=== PATIENT | female | born 1935 | race Caucasian/White ===

== ENCOUNTER 2018-01-27 16:29 | Inpatient (IN) | payer OTHER, MEDICARE ==
[~2018-01-27] VITALS: Ht 167.6 cm; Wt 65.8 kg
[2018-01-27 17:26] LABS: ABSOLUTE BASOPHIL COUNT 0 /CUMM (0.0-0.2); ABSOLUTE EOSINOPHIL COUNT 0.2 /CUMM (0.0-0.7); ABSOLUTE GRANULOCYTE CT 3.5 /CUMM (1.4-6.5); ABSOLUTE LYMPH COUNT 1.6 /CUMM (1.2-3.4); ABSOLUTE MONOCYTE COUNT 0.6 /CUMM (0.10-0.60); BASOPHIL % 0.4 % (0.0-2.0); EOSINOPHIL % 3.2 % (0-5); GRANULOCYTE % 59.2 % (42.2-75.2); HEMATOCRIT 35.6 % (37-47); MEAN CORPUSCULAR HGB 31.5 PG (27.0-31.0); MEAN CORPUSCULAR HGB CONC 33.9 G/DL (33.0-37.0); MEAN CORPUSCULAR VOLUME 92.8 FL (81.0-99.0); MEAN PLATELET VOLUME 6.5 FL (7.4-10.4); PLATELET COUNT 277 /CUMM (130-400); RED BLOOD CELL CT 3.84 /CUMM (4.20-5.40); WHITE BLOOD CELL COUNT 5.9 /CUMM (4.8-10.8)
[2018-01-27 17:31] LABS: PT 11.7 SEC (9.4-12.5); PTT 30 SEC (25-37)
--- NOTE | 2018-01-27 18:24 | RADIOLOGY REPORT ---
PA/LATERAL CHEST RADIOGRAPH CLINICAL INFORMATION: Preop clearance COMPARISON: None available TECHNIQUE: 2 views of the chest were obtained. FINDINGS: There is symmetric lung inflation. There is no focal consolidation, pleural effusion, or pneumothorax. Cardiac silhouette size is normal. There are no acute osseous findings. There are surgical clips within the left axilla. IMPRESSION: No acute pulmonary process.
--- NOTE | 2018-01-27 19:25 | Cons- Orthopedic ---
General Information and HPI Consulting Request Date of Consult: 01/27/18 Requested By: error History of Present Illness: ERROR. Allergies/Medications Allergies: Coded Allergies: MDX - Penicillin (Intermediate, HIVES 01/27/18) hydrochlorothiazide (Intermediate, HIVES 01/27/18) Past History Medical History Neurological: NONE EENT: NONE Cardiovascular: hypertension Respiratory: NONE Gastrointestinal: NONE Hepatic: NONE Renal: NONE Musculoskeletal: NONE Psychiatric: NONE Endocrine: NONE Cancer(s): BREAST CA Exam & Diagnostic Data Vital Signs and I&O error Physical Exam: errror Assessment/Plan Assessment/Plan error Consult Acknowledgment - Thank you for your consult request. Physical Exam: gen- card- pulm- abd- ext- Assessment/Plan Assessment/Plan A- 82yoF Consult Acknowledgment - Thank you for your consult request.
--- NOTE | 2018-01-27 19:33 | Cons- Orthopedic ---
General Information and HPI Consulting Request Date of Consult: 01/27/18 Requested By: ED, medical service Reason for Consult: right hip fx History of Present Illness: 82F presents to ED after being seen as an outpt by Dr. Ryo and found with a right femoral neck fracture that occured during a mechanical fall 4 weeks ago. Pt was shopping at [employer], slipped on the ?wet floor and fell. She continued walking and didnt seek medical tx for 2 weeks. At that time, he main complaint was right knee pain and had imaging of R knee only which was normal. Her R knee pain continued for an additional 2 weeks, and she saw Dr. Roy for the first time this week. Her R hip was imaged for the first time, and right femoral neck fracture was seen on MRI. She admits to pain at right knee and hip (knee>hip), though is otherwise comfortable. No hx orthopedic surgery. PMHx htn. Denies cp/sob/n/v/other injuries at this time. Allergies/Medications Allergies: Coded Allergies: hydrochlorothiazide (Intermediate, HIVES 01/27/18) Penicillins (HIVES 01/27/18) Home Med List: Aspirin (Ecotrin*) 325 MG TABLET.DR 1 TAB PO BID PAIN (Reported) Clonidine HCl 0.1 MG TABLET 1 TAB PO BID BP (Reported) Ibuprofen 600 MG TABLET 0.5 TAB PO PRN PAIN/INFLAMMATION (Reported) with food Losartan Potassium 100 MG TABLET 1 TAB PO DAILY BP (Reported) Metoprolol Tartrate (Lopressor) 50 MG TABLET 1 TAB PO BID HEART/BP (Reported) Past History Medical History Neurological: NONE EENT: NONE Cardiovascular: hypertension Respiratory: NONE Gastrointestinal: NONE Hepatic: NONE Renal: NONE Musculoskeletal: NONE Psychiatric: NONE Endocrine: NONE Cancer(s): breast cancer (left, sp CT/RT/lumpectomy 2007) Surgical History Pertinent Surgical History: appendectomy (8yr old), lumpectomy (2007, left, sp CT/RT), hemorrhoidectomy 1974 Psychosocial History Where Do You Live? Home Who Do You Live With? spouse Services at Home: None Illicit Drug Use: denies illicit drug use Exam & Diagnostic Data Vital Signs and I&O Vital Signs Date Time Temp Pulse Resp B/P B/P Pulse O2 O2 Flow FiO2 Mean Ox Delivery Rate 01/27 1637 98.3 73 18 179/73 98 Room Air Physical Exam: gen- nad [id number] pulm-ctab abd- soft nt ext- +dorsi/plantar felcion, gross sensation intact, +pt/dp bl, calves soft nt, r hip nt/skin intact Last 24 Hours of Labs: Laboratory Tests 01/27 1714 Chemistry Sodium (137 - 145 mmol/L) 140 Potassium (3.5 - 5.1 mmol/L) 4.4 Chloride (98 - 107 mmol/L) 104 Carbon Dioxide (22 - 30 mmol/L) 27 Anion Gap (5 - 16) 9 BUN (7 - 17 mg/dL) 31 H Creatinine (0.5 - 1.0 mg/dL) 1.2 H Estimated GFR (>60 ml/min) 43 L BUN/Creatinine Ratio (7 - 25 %) 25.8 H Glucose (65 - 99 mg/dL) 87 Calcium (8.4 - 10.2 mg/dL) 9.6 Total Bilirubin (0.2 - 1.3 mg/dL) 0.2 AST (14 - 36 U/L) 21 ALT (9 - 52 U/L) 21 Alkaline Phosphatase (<127 U/L) 64 Troponin I (< 0.11 ng/ml) < 0.01 Total Protein (6.3 - 8.2 g/dL) 6.7 Albumin (3.5 - 5.0 g/dL) 4.0 Globulin (1.9 - 4.2 gm/dL) 2.7 Albumin/Globulin Ratio (1.1 - 2.2 %) 1.5 Coagulation PT (9.4 - 12.5 SEC) 11.7 INR (0.90 - 1.19) 1.07 APTT (25 - 37 SEC) 30 Hematology CBC w Diff NO MAN DIFF REQ WBC (4.8 - 10.8 /CUMM) 5.9 RBC (4.20 - 5.40 /CUMM) 3.84 L Hgb (12.0 - 16.0 G/DL) 12.1 Hct (37 - 47 %) 35.6 L MCV (81.0 - 99.0 FL) 92.8 MCH (27.0 - 31.0 PG) 31.5 H MCHC (33.0 - 37.0 G/DL) 33.9 RDW (11.5 - 14.5 %) 13.0 Plt Count (130 - 400 /CUMM) 277 MPV (7.4 - 10.4 FL) 6.5 L Gran % (42.2 - 75.2 %) 59.2 Lymphocytes % (20.5 - 51.1 %) 26.4 Monocytes % (1.7 - 9.3 %) 10.8 H Eosinophils % (0 - 5 %) 3.2 Basophils % (0.0 - 2.0 %) 0.4 Absolute Granulocytes (1.4 - 6.5 /CUMM) 3.5 Absolute Lymphocytes (1.2 - 3.4 /CUMM) 1.6 Absolute Monocytes (0.10 - 0.60 /CUMM) 0.6 Absolute Eosinophils (0.0 - 0.7 /CUMM) 0.2 Absolute Basophils (0.0 - 0.2 /CUMM) 0 Imaging Results: done as outpt, reviewed by Dr. Roy Assessment/Plan Assessment/Plan A- 82yoF with R femoral neck fracture, PMHx HTN, with some elvated creatinine ( chronic?), otherwise stable P- -agree with medical admission for preoperative optimization/clearance - no additional imaging neccessary of rle -NPO p mn - prn pain meds - home meds - OR in am if cleared - dw Dr. Dang Consult Acknowledgment - Thank you for your consult request.
--- NOTE | 2018-01-27 19:33 | ED UPPER/LOWER EXTREMITY COMPL ---
History of Present Illness General Chief Complaint: General Adult Stated Complaint: PT SIB DR RANDALL FOR OPERATION Source: patient Exam Limitations: no limitations Vital Signs & Intake/Output Vital Signs & Intake/Output Vital Signs Date Time Temp Pulse Resp B/P B/P Pulse O2 O2 Flow FiO2 Mean Ox Delivery Rate 01/28 0130 97.9 68 20 148/60 01/28 0130 97.9 68 20 148/60 01/27 2200 98.0 60 18 140/62 91 Room Air 01/27 2010 98.4 56 18 178/68 98 Room Air 01/27 1637 98.3 73 18 179/73 98 Room Air ED Intake and Output 01/28 0000 01/27 1200 Intake Total 440 Output Total Balance 440 Intake, Oral 440 Patient 145 lb Weight Weight Reported by Patient Measurement Method Triage Note: "I'M HERE BECAUSE A HAVE A LITTLE FRACTURED HIP" AND STATES DR RANDALL WANTS HER TO GET ADMITTED FOR SURGERY TOMORROW OR TUESDAY. AMBULATORY WITH MINIMAL ISSUE. STATES THE PAIN IS WORSE IN HER KNEE THAN HER HIP. REPORTS SHE HAD A MECHANICAL TRIP AND FALL 4 WEEKS AGO AND SUSTAINED HIP INJURY. Triage Nurses Notes Reviewed? yes Onset: Abrupt Duration: day(s):, week(s): Timing: recent history HPI: 82-year-old female comes into the emergency room for right hip fracture. Patient had an MRI as an outpatient which showed a right femoral neck fracture. She was sent in for further evaluation. Patient will require surgery in the morning. Mild pain. Intermittent. Present with certain movements. ([place] LUTHER,Mathew) Allergies Coded Allergies: hydrochlorothiazide (Intermediate, HIVES 01/27/18) Penicillins (HIVES 01/27/18) Reconcile Medications Aspirin (Ecotrin*) 325 MG TABLET.DR 1 TAB PO BID PAIN (Reported) Clonidine HCl 0.1 MG TABLET 1 TAB PO BID BP (Reported) Ibuprofen 600 MG TABLET 0.5 TAB PO PRN PAIN/INFLAMMATION (Reported) with food Losartan Potassium 100 MG TABLET 1 TAB PO DAILY BP (Reported) Metoprolol Tartrate (Lopressor) 50 MG TABLET 1 TAB PO BID HEART/BP (Reported) (Angie HUGHES,Dada Hart) Past History Travel History Traveled to [place] past 21 day No Medical History Any Pertinent Medical History? see below for history Neurological: NONE EENT: NONE Cardiovascular: hypertension Respiratory: NONE Gastrointestinal: NONE Hepatic: NONE Renal: NONE Musculoskeletal: NONE Psychiatric: NONE Endocrine: NONE Cancer(s): BREAST CA Surgical History Surgical History: non-contributory Psychosocial History Who do you live with Significant Other What is your primary language [place]an Tobacco Use: Quit >30 days ago Family History Hx Contributory? No (Mathew Sullivan) Review of Systems Review of Systems Constitutional: Reports: no symptoms. EENTM: Reports: no symptoms. Respiratory: Reports: no symptoms. Cardiovascular: Reports: no symptoms. Gastrointestinal/Abdominal: Reports: no symptoms. Genitourinary: Reports: no symptoms. Musculoskeletal: Reports: see HPI. Skin: Reports: no symptoms. Neurological/Psychological: Reports: no symptoms. Hematologic/Endocrine: Reports: no symptoms. Immunological: Reports: no symptoms. All Other Systems: Reviewed and Negative (Mathew Sullivan) Physical Exam Physical Exam General Appearance: well developed/nourished, mild distress Head: atraumatic Eyes: Bilateral: normal appearance. Ears, Nose, Throat: normal ENT inspection, hearing grossly normal Neck: normal inspection Cardiovascular/Respiratory: no respiratory distress Back: normal inspection Hip Right: limited range of motion Neurologic/Tendon: normal sensation, normal motor functions, normal tendon functions, responds to pain, no evidence tendon injury, no pulse deficit Skin: intact, normal color, warm/dry (Mathew Sullivan) Progress Differential Diagnosis: contusion, dislocation, fracture Plan of Care: Orders Procedure Date/time Status Nothing by Mouth 01/28 B Active XRY-HIP 2-3 VIEWS, RIGHT 01/28 0228 Active Weight 01/27 2149 Active Vital Signs 01/27 2149 Active Teach/Educate 01/27 2149 Active Pain Treatment and Response 01/27 2149 Active Nutritional Intake, Monitor 01/27 2149 Active Isolation 01/27 2149 Active Intake & Output 01/27 2149 Active Patient Care Conference 01/27 2149 Active Activity/Ambulation 01/27 2149 Active Pathway - chart 01/27 2058 Active House Staff 01/27 2058 Active Patient Data 01/27 2058 Active Code Status 01/27 2058 Active Patient Data 01/27 1955 Active Saline Lock 01/27 1951 Active Misc Message 01/27 1951 Active ED Holding Orders 01/27 1951 Active Admit to inpatient 01/27 1951 Active Vital Signs 01/27 1951 Active Code Status 01/27 1951 Complete TROPONIN LEVEL 01/27 1653 Complete PARTIAL THROMBOPLASTIN TIME 01/27 1653 Complete PROTHROMBIN TIME 01/27 1653 Complete COMPREHENSIVE METABOLIC PANEL 01/27 1653 Complete CBC WITHOUT DIFFERENTIAL 01/27 1653 Complete EKG 01/27 165 Active Intake & Output 01/27 1637 Active VTE Mechanical Prophylaxis 01/27 UNK Active Vital Signs 01/27 UNK Complete Intake & Output 01/27 UNK Complete Activity/Ambulation 01/27 UNK Active Current Medications Sig/Fernanda Start time Last Medication Dose Stop Time Status Admin Clonidine 0.1 MG BID 01/28 900 AC (Catapres) Losartan Potassium 100 MG DAILY 01/28 900 AC (Cozaar) Metoprolol Tartrate 50 MG BID 01/28 900 AC (Lopressor) Dextrose/Sodium 1,000 ML Q20H 01/28 0045 AC 01/28 Chloride 01/28 2044 0130 (D5W-1/2 Normal Saline 1000ML) Acetaminophen 650 MG Q6P PRN 01/27 2100 AC (Tylenol) Acetaminophen 1,000 MG Q6P PRN 01/27 2100 AC (Ofirmev) Laboratory Tests 01/27/18 1714: Anion Gap 9, Estimated GFR 43 L, BUN/Creatinine Ratio 25.8 H, Glucose 87, Calcium 9.6, Total Bilirubin 0.2, AST 21, ALT 21, Alkaline Phosphatase 64, Troponin I < 0.01, Total Protein 6.7, Albumin 4.0, Globulin 2.7, Albumin/ Globulin Ratio 1.5, PT 11.7, INR 1.07, APTT 30, CBC w Diff NO MAN DIFF REQ, RBC 3.84 L, MCV 92.8, MCH 31.5 H, MCHC 33.9, RDW 13.0, MPV 6.5 L, Gran % 59.2, Lymphocytes % 26.4, Monocytes % 10.8 H, Eosinophils % 3.2, Basophils % 0.4, Absolute Granulocytes 3.5, Absolute Lymphocytes 1.6, Absolute Monocytes 0.6, Absolute Eosinophils 0.2, Absolute Basophils 0 Diagnostic Imaging: Viewed by Me: Radiology Read. Discussed w/RAD: Radiology Read. Radiology Impression: PATIENT: KERVIN FAIRBANKS PRESENT AGE: 82 PATIENT ACCOUNT NO: [id number] : 37 LOCATION: [facility] ORDERING PHYSICIAN: Rama LUTHER SERVICE DATE: 01/27/18 EXAM TYPE: RAD - XRY-CHEST XRAY, TWO VIEWS PA/LATERAL CHEST RADIOGRAPH CLINICAL INFORMATION: Preop clearance COMPARISON: None available TECHNIQUE: 2 views of the chest were obtained. FINDINGS: There is symmetric lung inflation. There is no focal consolidation, pleural effusion, or pneumothorax. Cardiac silhouette size is normal. There are no acute osseous findings. There are surgical clips within the left axilla. IMPRESSION: No acute pulmonary process. DICTATED BY: Ion Yap MD DATE/TIME DICTATED:01/27/181817 CONVEYOR MAINTENANCE MECHANIC:DEBI DATE/TIME TRANSCRIBED:01/27/181817 CONFIDENTIAL, DO NOT COPY WITHOUT APPROPRIATE AUTHORIZATION. <Electronically signed in Other Vendor System> SIGNED BY: Ion Yap MD 01/27/181823 Initial ED EKG: normal sinus rhythm (57), rate (57) (Mathew Sullivan) Departure Departure Disposition: STILL A PATIENT Condition: Stable Clinical Impression Primary Impression: Closed displaced fracture of right femoral neck Referrals: John HUGHES,Brayden Quintana (PCP/Family) Departure Forms: Customer Survey General Discharge Information Admission Note Spoke With: Myke Roman MD Documentation of Exam: Documentation of any treatments & extenuating circumstances including Concerns Regarding Discharge (functional status, medication knowledge or non-compliance, living conditions, etc.) that warrant an admission rather than observation: Patient will require orif in morning. medical clearance. short term rehanb. pain control. (Mathew Sullivan) PA/SALES REPRESENTATIVE PRINTING PAPER Co-Sign Statement Statement: ED Attending supervision documentation- [x] I saw and evaluated the patient. I have also reviewed all the pertinent lab results and diagnostic results. I agree with the findings and the plan of care as documented in the PA's/SALES REPRESENTATIVE PRINTING PAPER's documentation. [] I have reviewed the ED Record and agree with the PA's/SALES REPRESENTATIVE PRINTING PAPER's documentation. [] Additions or exceptions (if any) to the PAs/SALES REPRESENTATIVE PRINTING PAPER's note and plan are summarized below: [] (Angie HUGHES,Dada Hart)
--- NOTE | 2018-01-27 19:56 | History & Physical ---
Emery Garcia [birth year]: Past History Travel History Traveled to [place] past 21 day No Medical History Neurological: NONE EENT: NONE Cardiovascular: hypertension Respiratory: NONE Gastrointestinal: NONE Hepatic: NONE Renal: NONE Musculoskeletal: NONE Psychiatric: NONE Endocrine: NONE Cancer(s): BREAST CA Surgical History Surgical History: non-contributory Review of Systems Review of Systems Cardiovascular: Denies: no symptoms. Respiratory: Denies: no symptoms. GI: Denies: no symptoms. Genitourinary: Denies: no symptoms. Neurological/Psychological: Denies: no symptoms. Exam & Diagnostic Data Physical Exam General Appearance Alert, Oriented X3, Cooperative, No Acute Distress Cardiovascular Normal S1, Normal S2 Lungs Clear to Auscultation, Normal Air Movement Abdomen Normal Bowel Sounds, Soft, No Tenderness, No Hepatospenomegaly, No Masses Neurological Normal Gait, Normal Speech, Strength at 5/5 X4 Ext, Normal Tone Extremities No Clubbing, No Cyanosis, No Edema, Normal Pulses, No Tenderness/ Swelling Assessment/Plan Assessment: 82 y of age F with PMH significant for HTN , Breast cancer 10 yrs ago s/p Chemo /RT in remission, Presented to ER with C/O hip fracture for repair. Patient endorsed Hx of fall 5 weeks ago, at that time she was only having pain in right knee joint. On visit to Ortho office they found out bruisie and reffered pain is due to right femur neck fracture. Ortho plaining for surgery on right hip and we will evaluate risk of patient for surgery. At the time presention to ER patient Vitals and labs are given below. Vitals: BP:179/70 OK: 73 RR:18 T:98, Spo2 98% Labs : Pertinent labs are significant for BUN/creatinine 31/1.2, PT/PTT 11/1.7, troponin less than 0.01. Chest x-ray unremarkable. Hip x-ray pending.ratification XRAY: right hip shows No acute abnormalities at the right hip. - Mild osteoarthritis of the right hip. MRI: MRI showed right femoral nect fracture Problems List: * Right femur neck fracture * HTN A/P: * Patient evaluated for surgery that * is she is fit candidaate for surgery or not. * RCRI score is 0.4% * Low risk for surgery. ON physical exam nothing sigificant. * Or consulation placed Dr Evens Roy MD * Surgery planned today History of hypertension: * Will continue her old medication losartan 100mg OD . metpoproplol 50mg BID , clonidine 0.1mg will be continued while his stay at hosptal. History of breast cancer In remission DVT prophylaxis ALPS for now CODE STATUS Full code Core Measures/Misc (01/30) Sepsis (View protocol) If YES complete Sepsis Event Note If YES complete Sepsis Event Note Bethany HUGHES,[facility] 01/28/18 0224: Core Measures/Misc (01/30) Sepsis (View protocol) If YES complete Sepsis Event Note If YES complete Sepsis Event Note Resident Review Statement Resident Statement: examined this patient, discussed with chemist internship, agreed with chemist internship, discussed with family, reviewed EMR data (avail), discussed with nursing , discussed with case mgmt, reviewed images, amended to note Other Findings: Patient is a 82 YO F with PMH significant for HTN follows , Breast cancer 10 yrs ago s/p Chemo/RT in remission, mild elevated Cr presented to [facility] after sustaining a hip fracture for repair. Patient sustained a fall 4.5 weeks ago, however reported only knee pain during her first Ortho visit ( referred pain) although had bruised on right hip. She later noticed her hip hurts a lot, had a follow-up appointment today. She was found to have a right hip fracture and sent to ER for surgery tomorrow. She was able to walk around very slight difficulty and participate in ADLs till today. She is admitted to medical service for preoperative optimization/risk stratification. Vital signs at presentation were stable except blood pressure 179/70 mmHg. Physical examination is unremarkable, she did have very mild difficulty mobilizing right hip. Labs are significant for BUN/creatinine 31/1.2, PT/PTT 11/1.7, troponin less than 0.01. Chest x-ray unremarkable. Hip x-ray pending. Evaluation Patient has RCRI score of 0 (low risk surgery, no history of ischemic heart disease, no history of CHF, no cerebral vascular disease, not diabetic, creatinine less than 2). Her risk for having adverse cardiac events is 0.4%. She is hematologically stable and physical examination is completely unremarkable. She is a very low risk for hip surgery. Plan Admit to general medicine floor Right hip fracture * Preoperative evaluation - risk stratified to be low * Nothing by mouth from midnight * Gentle IV hydration * Oral/IV Tylenol as needed * Orthopedic consultation - Ghanshyam Roy MD * Surgery planned in a.m. History of hypertension Appears resistant hypertension, follows Dr. Garcia. She was on losartan 100 mg daily, metoprolol 50 twice a day, clonidine 0.1 mg twice a day. * Continue home dose for now History of breast cancer In remission DVT prophylaxis ALPS for now CODE STATUS Full code Abel HUGHES,Myke 01/28/18 0413: General Information and HPI Statement: I have seen and personally examined KERVIN FAIRBANKS and documented this H&P. The patient is a 82 year old F who presented with a patient stated chief complaint of [hip fracture]. Source of Information: patient, family Exam Limitations: no limitations History of Present Illness: See below Allergies/Medications Allergies: Coded Allergies: hydrochlorothiazide (Intermediate, HIVES 01/27/18) Penicillins (HIVES 01/27/18) Home Med list Aspirin (Ecotrin*) 325 MG TABLET.DR 1 TAB PO BID PAIN (Reported) Clonidine HCl 0.1 MG TABLET 1 TAB PO BID BP (Reported) Ibuprofen 600 MG TABLET 0.5 TAB PO PRN PAIN/INFLAMMATION (Reported) with food Losartan Potassium 100 MG TABLET 1 TAB PO DAILY BP (Reported) Metoprolol Tartrate (Lopressor) 50 MG TABLET 1 TAB PO BID HEART/BP (Reported) Past History Medical History Cardiovascular: hypertension Review of Systems Review of Systems Constitutional: Reports: see HPI. Exam & Diagnostic Data Last 24 Hrs of Vital Signs/I&O Vital Signs Date Time Temp Pulse Resp B/P B/P Pulse O2 O2 Flow FiO2 Mean Ox Delivery Rate 01/28 013 97.9 68 20 148/60 01/28 0130 97.9 68 20 148/60 01/27 2200 98.0 60 18 140/62 91 Room Air 01/27 2010 98.4 56 18 178/68 98 Room Air 01/27 1637 98.3 73 18 179/73 98 Room Air Intake & Output 01/28 0800 01/28 0000 01/27 1600 Intake Total 440 Output Total Balance 440 Intake, Oral 440 Patient 145 lb Weight Weight Reported by Patient Measurement Method Physical Exam General Appearance Alert, Oriented X3, Cooperative, No Acute Distress Skin No Rashes, No Breakdown, No Significant Lesion Skin Temp/Moisture Exam: Warm/Dry Sepsis Skin Exam (color): Normal for Ethnicity HEENT Atraumatic, PERRLA, EOMI Neck Supple, No JVD Lymphatic Axillary nl, Cervical nl Cardiovascular Regular Rate, Normal S1, Normal S2 Lungs Clear to Auscultation, Normal Air Movement Abdomen Normal Bowel Sounds, Soft, No Tenderness Sepsis Peripheral Pulse Location: Dorsalis Pedis Sepsis Peripheral Pulse Exam: Normal Sepsis Cap Refill Exam: <2 Sec Last 24 Hrs of Labs/Kervin: Laboratory Tests 01/27/18 1714: Anion Gap 9, Estimated GFR 43 L, BUN/Creatinine Ratio 25.8 H, Glucose 87, Calcium 9.6, Total Bilirubin 0.2, AST 21, ALT 21, Alkaline Phosphatase 64, Troponin I < 0.01, Total Protein 6.7, Albumin 4.0, Globulin 2.7, Albumin/ Globulin Ratio 1.5, PT 11.7, INR 1.07, APTT 30, CBC w Diff NO MAN DIFF REQ, RBC 3.84 L, MCV 92.8, MCH 31.5 H, MCHC 33.9, RDW 13.0, MPV 6.5 L, Gran % 59.2, Lymphocytes % 26.4, Monocytes % 10.8 H, Eosinophils % 3.2, Basophils % 0.4, Absolute Granulocytes 3.5, Absolute Lymphocytes 1.6, Absolute Monocytes 0.6, Absolute Eosinophils 0.2, Absolute Basophils 0 Diagnostic Data EKG Results normal sinus rhythm (57) Assessment/Plan As Ranked By This Provider Problem List: 1. Closed displaced fracture of right femoral neck Core Measures/Misc (01/30) Acute Coronary Syndrome ACS Diagnosis: No Congestive Heart Failure Congestive Heart Failure Diagnosis No Cerebrovascular Accident CVA/TIA Diagnosis: No VTE (View Protocol) VTE Risk Factors No risk factors No Mechanical VTE Prophylaxis d/t LowRisk-No Interven Req'd No VTE Pharm Prophylaxis d/t LowRisk-No Interven Req'd Sepsis (View protocol) Sepsis Present: No If YES complete Sepsis Event Note If YES complete Sepsis Event Note Attending MD Review Statement Attending Statement Attending MD Statement: examined this patient, discuss w/resident/PA/DRIFTMAN, agreed w/resident/PA/DRIFTMAN, reviewed EMR data (avail), discussed with nursing, discussed with case mgmt, amended to note Attending Assessment/Plan: This patient is an 82 year old female with a significant past medical history for HTN follows, Breast cancer 10 yrs ago s/p Chemo/RT in remission, mild elevated Cr presented who presented to [facility] after sustaining a hip fracture for repair. The patient sustained a fall 4 1/2 weeks ago, however reported only knee pain during her first Ortho visit although had bruised on right hip. She later noticed her hip hurts a lot, had a follow-up appointment today. She was found to have a right hip fracture and sent to ER for pain management and optimization or possible surgery tomorrow. While in the emergency department the patient was afebrile with stable vital signs, CBC is unremarkable, INR normal, slight elevation in BUN and creatinine and chest x-ray without acute changes. The patient is admitted to general med for pain control and optimization. Her RCRI score is 0 (low risk surgery, no history of ischemic heart disease, no history of CHF, no cerebral vascular disease, not diabetic, creatinine less than 2). Her risk for having adverse cardiac events is 0.4%. She is a very low risk for hip surgery. Well monitor overnight, gently hydrate and keep her nothing by mouth after midnight. Full code
[2018-01-27] MEDS ORDERED: LOSARTAN POTAS100 M1 PO (21:16)
[2018-01-27] MEDS ORDERED: LOPRESSOR50 M1 PO (21:16)
[2018-01-27] MEDS ORDERED: CLONIDINE HCL0.1 MG PO (21:17)
[2018-01-27] MEDS ORDERED: IBUPROFEN600 M1 PO (21:18)
[2018-01-27] MEDS ORDERED: ASPIRIN EC325 M2 PO (21:18)
[2018-01-27 22:00] VITALS: BP 140/62
[2018-01-28 01:00] VITALS: BP 148/60
--- NOTE | 2018-01-28 02:35 | PN- Housestaff ---
Objective Last 24 Hrs of Vital Signs/I&O Vital Signs Date Time Temp Pulse Resp B/P B/P Pulse O2 O2 Flow FiO2 Mean Ox Delivery Rate 01/28 013 97.9 68 20 148/60 01/28 0130 97.9 68 20 14860 01/27 2200 98.0 60 18 140/62 91 Room Air 01/27 2010 98.4 56 18 178/68 98 Room Air 01/27 1637 98.3 73 18 179/73 98 Room Air Intake & Output 01/28 0800 01/28 0000 01/27 1600 Intake Total 440 Output Total Balance 440 Intake, Oral 440 Patient 65.771 kg Weight Weight Reported by Patient Measurement Method
[2018-01-28 06:31] VITALS: BP 140/60
--- NOTE | 2018-01-28 06:39 | PN- Housestaff ---
Emery Garcia 01/28/18 0638: Subjective Follow-up For: Hip fracture Subjective: Patient seen and examined at bedside. She is complaining of pain right hip and knee. She denies fever, chills, chest pain, abdominal pain, diarrhea, constipation, burning micturition, Review of Systems Constitutional: Reports: see HPI. Objective Last 24 Hrs of Vital Signs/I&O Vital Signs Date Time Temp Pulse Resp B/P B/P Pulse O2 O2 Flow FiO2 Mean Ox Delivery Rate 01/28 0631 98.0 60 22 140/60 96 Room Air 01/28 0130 97.9 68 20 148/60 01/28 0130 97.9 68 20 148/60 01/28 0100 97.9 68 20 148/60 97 Room Air 01/28 0000 91 Room Air 01/27 2200 98.0 60 18 140/62 91 Room Air 01/27 2010 98.4 56 18 178/68 98 Room Air 01/27 1637 98.3 73 18 179/73 98 Room Air Intake & Output 01/28 1600 01/28 0800 01/28 0000 Intake Total 277 440 Output Total 0 Balance 277 440 Intake, IV 227 Intake, Oral 50 440 Number 0 Bowel Movements Output, Urine 0 Patient 145 lb Weight Weight Reported by Patient Measurement Method Physical Exam General Appearance: Alert, Oriented X3, Cooperative, No Acute Distress Sepsis Skin Exam (color): Bruise on Right hip Cardiovascular: Normal S1, Normal S2 Lungs: Clear to Auscultation, Normal Air Movement Abdomen: Normal Bowel Sounds, Soft, No Tenderness, No Hepatospenomegaly, No Masses Assessment/Plan Assessment: 82 y of age F with PMH significant for HTN , Breast cancer 10 yrs ago s/p Chemo /RT in remission, Presented to ER with C/O hip fracture for repair. Patient endorsed Hx of fall 5 weeks ago, at that time she was only having pain in right knee joint. On visit to Ortho office they found out bruisie and reffered pain is due to right femur neck fracture. Ortho plaining for surgery on right hip and we will evaluate risk of patient for surgery. At the time presention to ER patient Vitals and labs are given below. Vitals: BP:179/70 VT: 73 RR:18 T:98, Spo2 98% Labs : Pertinent labs are significant for BUN/creatinine 31/1.2, PT/PTT 11/1.7, troponin less than 0.01. Chest x-ray unremarkable. Hip x-ray pending.ratification XRAY: right hip shows No acute abnormalities at the right hip. - Mild osteoarthritis of the right hip. MRI: MRI showed right femoral nect fracture Problems List: * Right femur neck fracture * HTN A/P: * Patient evaluated for surgery that * is she is fit candidaate for surgery or not. * RCRI score is 0.4% * Low risk for surgery. ON physical exam nothing sigificant. * Orho consulation placed Dr Evens Roy MD * Surgery planned today History of hypertension: * Will continue her old medication losartan 100mg OD . metpoproplol 50mg BID , clonidine 0.1mg will be continued while his stay at hosptal. History of breast cancer In remission DVT prophylaxis ALPS for now CODE STATUS Full code Problem List: 1. Closed displaced fracture of right femoral neck Pain Ratin Pain Location: Right femur head Pain Goal: Remain pain free Pain Plan: Pain management pathway Tomorrow's Labs & Rationales: CBC, BEP Pablo Graham 01/28/18 1207: Attending MD Review Statement Attending Statement Attending MD Statement: examined this patient, discuss w/resident/PA/FACING SLITTER, agreed w/resident/PA/FACING SLITTER, discussed with family, reviewed EMR data (avail), discussed with nursing, discussed with case mgmt, reviewed images, amended to note Attending Assessment/Plan: 82 year old female with a significant past medical history for HTN follows, Breast cancer 10 yrs ago s/p Chemo/RT in remission, mild elevated Cr presented who presented to [place] after sustaining a hip fracture for repair. Patient underwent surgery and continue alexandra-operative care. Pain control. Follow ortho recomemndations. Montitor abs including hct and electrolytes. DVT prophyalxis as per ortho.
--- NOTE | 2018-01-28 11:20 | Operative Report ---
Operative/Inv Procedure Report Surgery Date: 01/28/18 Name of Procedure: Right hip percutaneous pinning Pre-Operative Diagnosis: Right hip femoral neck fracture Post-Operative Diagnosis: Right hip femoral neck fracture Estimated Blood Loss: scant Surgeon/Project Accountant: Ghanshyam Roy M.D. Anesthesia: laryngeal mask airway Implants: [place] 6.5 mm partially threaded screws -85 mm, 80mm, 80 mm Complications: None Condition: Stable to PACU Operative Indication: This is an 82-year-old female who sustained a fall several weeks ago. She was seen by another physician however developed worsening pain. X-rays and MRI were consistent with a nondisplaced femoral neck fracture of the right hip. Risks and benefits of the procedure were discussed with the patient at length. Risks include but are not limited to nerve damage, muscle damage, infection, blood loss, blood clots, pulmonary embolus, and even . The patient agreed to the above risks and elected to proceed with surgery. Operative/Procedure Note Note: The patient was placed supine on the operating room table. Anesthesia was induced by the anesthesia team. The patient received IV antibiotics prior to incision. A timeout was performed prior to incision. The site marking was visualized prior to incision. The patient was positioned on the fracture table with the injured extremity in a well-padded traction boot. The contralateral lower extremity was placed in flexion and abduction in a well-padded leg moss. Traction was applied to the injured extremity and the hip was positioned under x-ray guidance. The lower extremitiy was prepped and draped in the normal sterile fashion. An incision was made over the lateral aspect of the greater trochanter. The fascia was incised. The vastus lateralis was reflected. 3 parallel guidewires were inserted in an inverted triangle fashion up into the femoral head. Care was taken not to go distal to the lesser trochanter as a starting position. The guidewires were measured. The outer cortex of the femur was drilled. Three partially-threaded screws were then inserted. X-rays were taken to ensure adequate positioning. The guidewires were removed. All wounds were copiously irrigated. The fascia was closed with #1 Vicryl suture in a simple interrupted fashion. The skin was closed with 2-0 Vicryl suture and dong. A dry sterile dressing was placed and patient was transferred to PACU in stable condition.
--- NOTE | 2018-01-28 13:14 | RADIOLOGY REPORT ---
EXAMINATION: XR HIP, RIGHT CLINICAL INFORMATION: Hip pain. Fracture. COMPARISON: None TECHNIQUE: Two views of the right hip. FINDINGS: The visualized right pelvic bones are intact. There is mild loss of superomedial joint space of the degenerated hip and osteophytes are present at the femoral head-neck junction. There is either coxa profunda or acetabular protrusio at the hip. The assessment is limited due to the oblique orientation of the AP view. No evidence of femoral fracture or osteonecrosis. IMPRESSION: - No acute abnormalities at the right hip. - Mild osteoarthritis of the right hip.
[2018-01-28 14:36] VITALS: BP 108/60
--- NOTE | 2018-01-28 14:48 | PN- Student ---
Charity Arnold 01/28/18 1434: Subjective Subjective: 82 yo female w/ pmhx of htn pod#1 s/p right hip femoral neck pinning 2/2 to femoral neck fx after fall. Pt seen at beside shortly after arrival from the PACU. Recovering well, has tingling at surgical site but denies post-op pain, and has no complaints. Pt has not yet ambulated or voided her bladder. Pt denies SOB, chest pain, nausea, dizziniess, fever, or chills. Objective Objective: 24 TOTALSVital Signs Date Time Temp Pulse Resp B/P B/P Pulse O2 O2 Flow FiO2 Mean Ox Delivery Rate 01/28 1436 97.0 61 20 108/60 97 Room Air 01/28 1358 160/70 01/28 1357 97.8 62 20 160/70 01/28 1041 98.0 60 22 140/60 01/28 0631 98.0 60 22 140/60 96 Room Air 01/28 0130 97.9 68 20 148/60 01/28 0130 97.9 68 20 148/60 01/28 0100 97.9 68 20 148/60 97 Room Air 01/28 0000 91 Room Air 01/27 2200 98.0 60 18 140/62 91 Room Air 01/27 2010 98.4 56 18 178/68 98 Room Air 01/27 1637 98.3 73 18 179/73 98 Room Air 01/28 0000 01/27 0000 Intake Total 440 Output Total Balance 440 Intake, Oral 440 Patient 145 lb Weight Weight Reported by Patient Measurement Method Laboratory Tests 01/27 1714 Chemistry Sodium (137 - 145 mmol/L) 140 Potassium (3.5 - 5.1 mmol/L) 4.4 Chloride (98 - 107 mmol/L) 104 Carbon Dioxide (22 - 30 mmol/L) 27 Anion Gap (5 - 16) 9 BUN (7 - 17 mg/dL) 31 H Creatinine (0.5 - 1.0 mg/dL) 1.2 H Estimated GFR (>60 ml/min) 43 L BUN/Creatinine Ratio (7 - 25 %) 25.8 H Glucose (65 - 99 mg/dL) 87 Calcium (8.4 - 10.2 mg/dL) 9.6 Total Bilirubin (0.2 - 1.3 mg/dL) 0.2 AST (14 - 36 U/L) 21 ALT (9 - 52 U/L) 21 Alkaline Phosphatase (<127 U/L) 64 Troponin I (< 0.11 ng/ml) < 0.01 Total Protein (6.3 - 8.2 g/dL) 6.7 Albumin (3.5 - 5.0 g/dL) 4.0 Globulin (1.9 - 4.2 gm/dL) 2.7 Albumin/Globulin Ratio (1.1 - 2.2 %) 1.5 Coagulation PT (9.4 - 12.5 SEC) 11.7 INR (0.90 - 1.19) 1.07 APTT (25 - 37 SEC) 30 Hematology CBC w Diff NO MAN DIFF REQ WBC (4.8 - 10.8 /CUMM) 5.9 RBC (4.20 - 5.40 /CUMM) 3.84 L Hgb (12.0 - 16.0 G/DL) 12.1 Hct (37 - 47 %) 35.6 L MCV (81.0 - 99.0 FL) 92.8 MCH (27.0 - 31.0 PG) 31.5 H MCHC (33.0 - 37.0 G/DL) 33.9 RDW (11.5 - 14.5 %) 13.0 Plt Count (130 - 400 /CUMM) 277 MPV (7.4 - 10.4 FL) 6.5 L Gran % (42.2 - 75.2 %) 59.2 Lymphocytes % (20.5 - 51.1 %) 26.4 Monocytes % (1.7 - 9.3 %) 10.8 H Eosinophils % (0 - 5 %) 3.2 Basophils % (0.0 - 2.0 %) 0.4 Absolute Granulocytes (1.4 - 6.5 /CUMM) 3.5 Absolute Lymphocytes (1.2 - 3.4 /CUMM) 1.6 Absolute Monocytes (0.10 - 0.60 /CUMM) 0.6 Absolute Eosinophils (0.0 - 0.7 /CUMM) 0.2 Absolute Basophils (0.0 - 0.2 /CUMM) 0 Physical exam: Gen: elderly female resting comfortably in bed, AOx4, NAD Cardio: RRR, S1 and S2, no m/r/g Resp: good air movement, mild wheezes in posterior lung field Abd: NDNT, hypoactive bs Ext: incision site on left, lat thigh clean, dry and intact. 5/5 motor and sensation grossly intact for LE, calves non-tender, no pitting edema, +2 DP pulses b/l Assessment/Plan Assessment: 82yo female w/ pmhx of HTN POD 0 s/p right femoral neck pinning 2/2 femoral neck fx due to fall recovering well from the without complaints. Plan: PT evaluation, WBAT Advance to regular diet as tolerated Cont IVF and abx ancef x 2 Encourage IS Change dressing pod 2 DVT ppx lovenox CaioEfren quintanilla 01/28/18 1625: Assessment/Plan Plan: Seen and evaluated. Agree with above. R hip dressing c/d/i, moves all extremities, compartment soft, motor/sensory intact, s/p R perc pinning for R femoral neck fracture, recovering well. Awaiting PT eval, WBAT. Ancef x2. DVT ppx - alps, lovenox tomorrow morning. F/u cbc and chem in morning. Dispo - home PT vs STR pending PT eval.
--- NOTE | 2018-01-28 15:58 | RADIOLOGY REPORT ---
EXAMINATION: XR ORTHOPEDIC EXTREMITY OR CLINICAL INFORMATION: Right hip pain. COMPARISON: Radiograph's of right hip, 01/28/2018. TECHNIQUE: Intraoperative fluoroscopic imaging of the right hip was utilized by Dr. Roy. NUMBER OF SAVED IMAGES: 34 FLUOROSCOPY TIME: 1 minute, 2 seconds. DOSE: 1.30 rad FINDINGS: Fluoroscopic imaging of the right hip was utilized by Dr. Roy during percutaneous screw fixation across the femoral neck. The last images show that the fixation screws are in satisfactory position. Please refer to the operative report. IMPRESSION: Fluoroscopic imaging equipment provided to the operating room for percutaneous screw fixation of the right femoral neck.
[2018-01-28 17:51] LABS: ABSOLUTE BASOPHIL COUNT 0.1 /CUMM (0.0-0.2); ABSOLUTE EOSINOPHIL COUNT 0.1 /CUMM (0.0-0.7); ABSOLUTE GRANULOCYTE CT 5.7 /CUMM (1.4-6.5); ABSOLUTE LYMPH COUNT 1.3 /CUMM (1.2-3.4); ABSOLUTE MONOCYTE COUNT 0.9 /CUMM (0.10-0.60); BASOPHIL % 0.7 % (0.0-2.0); EOSINOPHIL % 1.5 % (0-5); GRANULOCYTE % 70.8 % (42.2-75.2); HEMATOCRIT 32.6 % (37-47); MEAN CORPUSCULAR HGB 31.6 PG (27.0-31.0); MEAN CORPUSCULAR HGB CONC 33.7 G/DL (33.0-37.0); MEAN CORPUSCULAR VOLUME 93.6 FL (81.0-99.0); MEAN PLATELET VOLUME 7.2 FL (7.4-10.4); PLATELET COUNT 223 /CUMM (130-400); RBC DISTRIBUTION WIDTH 13.3 % (11.5-14.5); RED BLOOD CELL CT 3.48 /CUMM (4.20-5.40); WHITE BLOOD CELL COUNT 8.1 /CUMM (4.8-10.8)
[2018-01-28 21:00] VITALS: BP 142/60
[2018-01-28 21:27] VITALS: BP 130/50
[2018-01-29 01:23] VITALS: BP 122/60
[2018-01-29 06:09] VITALS: BP 122/60
--- NOTE | 2018-01-29 08:46 | PN- Housestaff ---
Bethany HUGHES,Ida 01/29/18 0846: Subjective Follow-up For: s/p right hip pinning HTN Subjective: Patient feels better, no overnight events. No pain in the hip, reports back pain and neck pain. Able to work with physical therapy. Review of Systems Constitutional: Reports: see HPI. Objective Last 24 Hrs of Vital Signs/I&O Vital Signs Date Time Temp Pulse Resp B/P B/P Pulse O2 O2 Flow FiO2 Mean Ox Delivery Rate 01/29 0609 98.2 55 20 122/60 95 01/29 0123 98.4 56 20 122/60 94 Room Air 01/28 2127 98.3 60 18 130/50 94 01/28 2100 65 142/60 01/28 2057 65 142/60 01/28 2057 65 142/60 01/28 1436 97.0 61 20 108/60 97 Room Air 01/28 1358 160/70 01/28 1357 97.8 62 20 160/70 01/28 1041 98.0 60 22 140/60 Intake & Output 01/29 1600 01/29 0800 01/29 0000 Intake Total 520 680 Output Total 550 200 Balance -30 480 Intake, IV 400 200 Intake, Oral 120 480 Output, Urine 550 200 Physical Exam General Appearance: Alert, Oriented X3, Cooperative Skin: No Rashes, No Breakdown HEENT: Atraumatic, PERRLA, EOMI Neck: Supple, No JVD Cardiovascular: Normal S1, Normal S2, No Murmurs Lungs: Clear to Auscultation, Normal Air Movement Abdomen: Normal Bowel Sounds, Soft, No Tenderness Neurological: Normal Speech, Normal Tone, Sensation Intact Extremities: No Clubbing, No Cyanosis, dressing present on the right hip, no hematoma, mild tightness Vascular: Normal Pulses Current Medications: Current Medications Sig/Fernanda Start time Last Medication Dose Route Stop Time Status Admin Acetaminophen 650 MG Q6P PRN 01/27 2100 AC 01/29 PO 1758 Acetaminophen 1,000 MG Q6P PRN 01/27 2100 AC 01/29 IV 0325 Cefazolin Sodium 2 GM IQ8 01/28 1600 DC 01/28 N/A 1 UNIT IV 01/29 0029 2252 Clonidine 0.1 MG BID 01/28 0900 AC 01/29 PO 2104 Dextrose/Sodium 1,000 ML Q20H 01/28 0045 DC 01/28 Chloride IV 01/29 1643 0130 Enoxaparin Sodium 40 MG DAILY 01/29 900 AC 01/29 SC 1004 Losartan Potassium 100 MG DAILY 01/28 900 AC 01/29 PO 1005 Metoprolol Tartrate 50 MG BID 01/28 900 AC 01/29 PO 2104 Oxycodone HCl 5 MG Q4-6 PRN PRN 01/28 1230 AC PO Oxycodone HCl 10 MG Q4-6 PRN PRN 01/28 1230 AC PO Last 24 Hrs of Lab/Kervin Results Last 24 Hrs of Labs/Mics: Laboratory Tests 01/29/18 0956: Anion Gap 8, Estimated GFR 53 L, BUN/Creatinine Ratio 19.0, CBC w Diff NO MAN DIFF REQ, RBC 3.70 L, MCV 93.9, MCH 31.4 H, MCHC 33.5, RDW 13.1, MPV 6.7 L, Gran % 66.9, Lymphocytes % 19.4 L, Monocytes % 10.4 H, Eosinophils % 3.0, Basophils % 0.3, Absolute Granulocytes 3.8, Absolute Lymphocytes 1.1 L, Absolute Monocytes 0.6, Absolute Eosinophils 0.2, Absolute Basophils 0 Assessment/Plan Assessment: Patient is a 82 YO F with PMH significant for HTN follows , Breast cancer 10 yrs ago s/p Chemo/RT in remission, mild elevated Cr presented to [place] after sustaining a hip fracture for repair. Patient sustained a fall 4.5 weeks ago, however reported only knee pain during her first Ortho visit ( referred pain) although had bruised on right hip. She later noticed her hip hurts a lot, had a follow-up appointment today. She was found to have a right hip fracture and sent to ER for surgery tomorrow. She was able to walk around very slight difficulty and participate in ADLs till today. She is admitted to medical service for preoperative optimization/risk stratification. Vital signs at presentation were stable except blood pressure 179/70 mmHg. Physical examination is unremarkable, she did have very mild difficulty mobilizing right hip. Labs are significant for BUN/creatinine 31/1.2, PT/PTT 11/1.7, troponin less than 0.01. Chest x-ray unremarkable. Hip x-ray pending. Plan Admitted to general medicine floor Right hip fracture - s/p pinning day 1 * SC lovenox for DVT prophylaxis * weight bearing as tolerated. * Follow Orthopedic consultation - Ghanshyam Roy MD * Pain management History of hypertension Appears resistant hypertension, follows Dr. Garcia. She was on losartan 100 mg daily, metoprolol 50 twice a day, clonidine 0.1 mg twice a day. * Continue home dose for now History of breast cancer In remission DVT prophylaxis SC lovenox CODE STATUS Full code Problem List: 1. Closed displaced fracture of right femoral neck Pain Ratin Pain Location: n/a Pain Goal: Pain 4 or less Pain Plan: tylenol prn Tomorrow's Labs & Rationales: cbc Pablo Graham 01/29/18 1247: Attending MD Review Statement Attending Statement Attending MD Statement: examined this patient, discuss w/resident/PA/PONDMAN, agreed w/resident/PA/PONDMAN, discussed with family, reviewed EMR data (avail), discussed with nursing, discussed with case mgmt, reviewed images, amended to note Attending Assessment/Plan: Patient underwent surgery/hip pinning and continue alexandra-operative care without complications except anestensia blcok which is improving. Pain control. Follow ortho recomemndations. Her creatinine is back to baseline. DVT prophyalxis as per ortho with lovenox 40 sq. PT evaluation ongoing and dsicharge plans based on PT recommendations.
--- NOTE | 2018-01-29 09:22 | PN- Orthopedic ---
Surgical Brief Attending Note Brief Attending Note: Comfortable this AM AVSS RLE - dressing c/d/i +EHL/FHL Weak quad strength A/P - POD 1 s/p R hip percutaneous pinning WBAT PT she is weak from her nerve block but she should advance as tolerated with PT Postop xrays this AM needed
[2018-01-29 10:34] LABS: ABSOLUTE BASOPHIL COUNT 0 /CUMM (0.0-0.2); ABSOLUTE EOSINOPHIL COUNT 0.2 /CUMM (0.0-0.7); ABSOLUTE GRANULOCYTE CT 3.8 /CUMM (1.4-6.5); ABSOLUTE LYMPH COUNT 1.1 /CUMM (1.2-3.4); ABSOLUTE MONOCYTE COUNT 0.6 /CUMM (0.10-0.60); BASOPHIL % 0.3 % (0.0-2.0); GRANULOCYTE % 66.9 % (42.2-75.2); HEMATOCRIT 34.7 % (37-47); MEAN CORPUSCULAR HGB 31.4 PG (27.0-31.0); MEAN CORPUSCULAR HGB CONC 33.5 G/DL (33.0-37.0); MEAN CORPUSCULAR VOLUME 93.9 FL (81.0-99.0); MEAN PLATELET VOLUME 6.7 FL (7.4-10.4); PLATELET COUNT 243 /CUMM (130-400); RBC DISTRIBUTION WIDTH 13.1 % (11.5-14.5); WHITE BLOOD CELL COUNT 5.6 /CUMM (4.8-10.8)
[2018-01-29 10:42] VITALS: BP 140/52
--- NOTE | 2018-01-29 13:47 | RADIOLOGY REPORT ---
2 VIEWS OF THE RIGHT HIP CLINICAL INFORMATION: Status post right perc pinning. COMPARISON: Hip radiographs 01/28/2018. FINDINGS: 3 screws are appreciated within the proximal right femur transfixing the proximal right femur in anatomic alignment. Surgical hardware is intact. No fractures are seen. Hip joint is maintained. Surgical clips are present. IMPRESSION: Postoperative changes following surgical screw fixation of the proximal right femur in anatomic alignment.
[2018-01-29 16:12] VITALS: BP 134/58
[2018-01-29 21:11] VITALS: BP 124/60
--- NOTE | 2018-01-29 21:31 | Patient Discharge Instructions ---
Discharge Instructions General Discharge Information You were seen/treated for: right Hip fracture You had these procedures: right hip percutaneous pinning (Dr. Roy, 01/28/18) Watch for these problems: -fever>101 -inability to bear weight on operative leg -worsening pain despite pain medications -redness/drainage from incision Other wound care: -May shower 48hr after procedure -Do not soak wounds- no tub baths/swimming -watch for signs of infection - dry daily dressing changes as needed Special Instructions: Please follow up with your PCP in a week Please follow up with Dr. Roy in 2 weeks Take pain meds as needed. Take stool softeners/laxitives as needed. Take lovenox injection daily for 4 weeks to prevent development of postoperative blood clots. Activity Activity Limited to: Weight bear as tolerated Additional ACTIVITY Info: use assistive devices as needed Acute Coronary Syndrome Inclusion Criteria At DC or during hospital stay patient has or had the following: ACS DIAGNOSIS No Discharge Core Measures Meds if any: Prescribed or Continued at Discharge Meds if any: NOT Prescribed or Continued at Discharge Congestive Heart Failure Inclusion Criteria At DC or during hospital stay patient has or had the following: CHF DIAGNOSIS No Discharge Core Measures Meds if any: Prescribed or Continued at Discharge Meds if any: NOT Prescribed or Continued at Discharge Cerebrovascular accident Inclusion Criteria At DC or during hospital stay patient has or had the following: CVA/TIA Diagnosis No Discharge Core Measures Meds if any: Prescribed or Continued at Discharge Meds if any: NOT Prescribed or Continued at Discharge Venous thromboembolism Inclusion Criteria VTE Diagnosis No VTE Type NONE VTE Confirmed by (Test) NONE Discharge Core Measures - Per Current guidelines, there needs to be overlap - treatment for the first 5 days of Warfarin therapy. - If discharged on Warfarin prior to 5 days of - overlap therapy, the patient will need to be - assessed for post discharge needs including - *Post discharge parental anticoagulation - *Warfarin and/or parental anticoagulation education - *Follow up date to check INR post discharge At least 5 days overlap therapy as Inpatient No Meds if any: Prescribed or Continued at Discharge Note: Overlap Therapy is Warfarin and Anticoagulant Meds if any: NOT Prescribed or Continued at Discharge
[2018-01-30 06:50] VITALS: BP 126/60
--- NOTE | 2018-01-30 07:06 | Discharge Summary ---
Hospital Course Allergies: Coded Allergies: hydrochlorothiazide (Intermediate, HIVES 01/27/18) Penicillins (HIVES 01/27/18) Discharge Instructions Medications at Discharge Discharge Medications: Continue taking these medications: Losartan Potassium (Losartan Potassium) 100 MG TABLET 1 Tablet ORAL DAILY Metoprolol Tartrate (Lopressor) 50 MG TABLET 1 Tablet ORAL TWICE DAILY Clonidine HCl (Clonidine HCl) 0.1 MG TABLET 1 Tablet ORAL TWICE DAILY Aspirin (Ecotrin*) 325 MG TABLET.DR 1 Tablet ORAL TWICE DAILY Ibuprofen (Ibuprofen) 600 MG TABLET 0.5 Tablet ORAL as needed for PAIN/INFLAMMATION Instructions: with food Start taking the following new medications: Enoxaparin Sodium (Lovenox) 40 MG/0.4 ML SYRINGE 0.4 Milliliters SC DAILY Qty = 26 No Refills
--- NOTE | 2018-01-30 07:06 | PN- Housestaff ---
Emery Garcia 01/30/18 0706: Subjective Follow-up For: Right femur neck fracture Subjective: Patient seen and examined at bedside. She is sitting in her bed without any discomfort. She said she want to go home today. She said. PT evaluation done and they clear me to go home. She denies fever, chill, chest pain, abdominal pain, diarrhea, constipation, burning micturition. Review of Systems Constitutional: Reports: see HPI. Objective Last 24 Hrs of Vital Signs/I&O Vital Signs Date Time Temp Pulse Resp B/P B/P Pulse O2 O2 Flow FiO2 Mean Ox Delivery Rate 01/30 09 60 126/60 01/30 0927 60 126/60 01/30 0927 60 126/60 01/30 0650 98.7 57 20 126/60 94 Room Air 01/29 2111 98.3 60 18 124/60 94 Room Air 01/29 2104 60 124/60 01/29 2104 60 124/60 01/29 1612 98.2 60 20 134/58 93 01/29 1042 99.1 60 20 140/52 99 01/29 1005 140/60 Intake & Output 01/30 1600 01/30 0800 01/30 0000 Intake Total 200 1000 Output Total Balance 200 1000 Intake, Oral 200 1000 Physical Exam General Appearance: Alert, Oriented X3, Cooperative, No Acute Distress HEENT: Atraumatic, PERRLA, EOMI, Mucous Membr. moist/pink Neck: Supple, No JVD, No thryomegaly Cardiovascular: Normal S1, Normal S2 Lungs: Clear to Auscultation, Normal Air Movement Abdomen: Normal Bowel Sounds, Soft, No Tenderness, No Hepatospenomegaly Extremities: No Clubbing, No Cyanosis, No Edema, Normal Pulses Assessment/Plan Assessment: 82 y of age F with PMH significant for HTN , Breast cancer 10 yrs ago s/p Chemo /RT in remission, Presented to ER with C/O hip fracture for repair. Patient endorsed Hx of fall 5 weeks ago, at that time she was only having pain in right knee joint. On visit to Ortho office they found out bruisie and reffered pain is due to right femur neck fracture. Ortho plaining for surgery on right hip and we will evaluate risk of patient for surgery. At the time presention to ER patient Vitals and labs are given below. Vitals: BP:179/70 IA: 73 RR:18 T:98, Spo2 98% Labs : Pertinent labs are significant for BUN/creatinine 31/1.2, PT/PTT 11/1.7, troponin less than 0.01. Chest x-ray unremarkable. Hip x-ray pending.ratification XRAY: right hip shows No acute abnormalities at the right hip. - Mild osteoarthritis of the right hip. MRI: MRI showed right femoral nect fracture Problems List: * Right femur neck fracture * HTN A/P: Right femur neck fracture: * Surgery done * Patient is clear from orthopedic surgery * Patient will follow up on outpatient basis History of hypertension: * Will continue her old medication losartan 100mg OD . metpoproplol 50mg BID , clonidine 0.1mg will be continued while his stay at hosptal. History of breast cancer In remission Patient discharged home today Problem List: 1. Closed displaced fracture of right femoral neck Pain Ratin Pain Location: No pain Pain Goal: Remain pain free Pain Plan: Pain management pathway Tomorrow's Labs & Rationales: NO LABS Pablo Graham 01/30/18 1221: Attending MD Review Statement Attending Statement Attending MD Statement: examined this patient, discuss w/resident/PA/[employer]UM[employer] SECRETARY, agreed w/resident/PA/ALUMNAE SECRETARY, discussed with family, reviewed EMR data (avail), discussed with nursing, discussed with case mgmt, reviewed images, amended to note Attending Assessment/Plan: Patient no new complaints. She is medically stable for discharge.
--- NOTE | 2018-01-30 07:08 | PN- Orthopedic ---
Subjective Subjective: feeling well, pain well controlled, walked in halls yesterday, hopeful for [facility] dc today, concerned about administration of lovenox injections at home Objective Vital Signs and I&Os Vital Signs Date Time Temp Pulse Resp B/P B/P Pulse O2 O2 Flow FiO2 Mean Ox Delivery Rate 01/30 0650 98.7 57 20 126/60 94 Room Air 01/29 2111 98.3 60 18 124/60 94 Room Air 01/29 2104 60 124/60 01/29 2104 60 124/60 01/29 1612 98.2 60 20 134/58 93 01/29 1042 99.1 60 20 140/52 99 01/29 1005 140/60 Intake & Output 01/30 0800 01/30 0000 01/29 1600 01/29 0801/29 0000 01/28 1600 Intake Total 200 1000 520 680 400 Output Total 550 200 Balance 200 1000 -30 480 400 Intake, IV 400 200 Intake, Oral 200 1000 120 480 400 Output, Urine 550 200 Physical Exam: gen- nad card-s1s2 rrr pulm- ctab abd- soft nt ext- r hip dressing changed- staple line cdi, no erythema/ecchymosis, ttp at incision, calves soft nt bl, gross sensation intact, +dorsi/plantar flexion, feet warm Assessment/Plan Assessment/Plan A- POD2 sp R perc pinning for fem neck fx, stable with minimal pain. P- cont lovenox 40 daily sq x4 weeks lovenox teaching ordered pt, wbat, ambulate prn pain meds ok to shower dc planning- [facility] likely fu Dr. Roy in 2 weeks
--- NOTE | 2018-01-30 08:32 | Discharge Summary ---
Visit Information Visit Dates Admission Date: 01/27/18 Discharge Date: 01/30/2018 Hospital Course Course Attending Physician: Pablo Graham MD Primary Care Physician: Brayden Lopez MD Hospital Course: patient is a 82 YO F with PMH significant for HTN follows , Breast cancer 10 yrs ago s/p Chemo/RT in remission, mild elevated Cr presented to [facility] after sustaining a hip fracture for repair. Patient sustained a fall 4.5 weeks ago, however reported only knee pain during her first Ortho visit ( referred pain) although had bruised on right hip. She later noticed her hip hurts a lot, had a follow-up appointment and was found to have a right hip fracture and sent to ER for surgery tomorrow. She was able to walk around very slight difficulty and participate in ADLs . She is admitted to medical service for preoperative optimization/risk stratification. Vital signs at presentation were stable except blood pressure 179/70 mmHg. Physical examination is unremarkable, she did have very mild difficulty mobilizing right hip. Labs are significant for BUN/creatinine 31/1.2, PT/PTT 11 /1.7, troponin less than 0.01. Chest x-ray unremarkable. Preop evaluation Patient has RCRI score of 0 (low risk surgery, no history of ischemic heart disease, no history of CHF, no cerebral vascular disease, not diabetic, creatinine less than 2). Her risk for having adverse cardiac events is 0.4%. She is hematologically stable and physical examination is completely unremarkable. She is a very low risk for hip surgery. She was cleared for hip surgery Right hip fracture Outpatient MRI showed right femoral neck fracture. After clearance from medical team, she underwent right hip percutaneous pinning on 01/28/[address] nixon. she tolerated procedure well. She received adequate pain management. As per Ortho recommendations she was started on subcu Lovenox for DVT prophylaxis. She was on weightbearing as tolerated. He was advised to follow-up with Dr Kirill MD in 2 weeks. She was advised to continue Lovenox 40 daily subcutaneous for 4 weeks History of hypertension Appears resistant hypertension, follows Dr. Garcia. She was on losartan 100 mg daily, metoprolol 50 twice a day, clonidine 0.1 mg twice a day. Continue home medications. History of breast cancer In remission DVT prophylaxis lovenox CODE STATUS Full code Allergies: Coded Allergies: hydrochlorothiazide (Intermediate, HIVES 09/14/18) Penicillins (HIVES 01/27/18) Disposition Summary Disposition Principal Diagnosis: Right femoral neck fracture Additional Diagnosis: Status post percutaneous pinning Discharge Disposition: home health services Discharge Instructions General Discharge Information Code Status: Full Code Patient's Diet: As tolerated Patient's Activity: As tolerated Follow-Up Instructions/Appts: Follow-up with PCP in 1 week after discharge Follow-up with orthopedics in 1 week after discharge Continue DVT prophylaxis with subcu Lovenox 40 mg daily for the next 4 weeks Home physical therapy was ordered Medications at Discharge Discharge Medications: Continue taking these medications: Losartan Potassium (Losartan Potassium) 100 MG TABLET 1 Tablet ORAL DAILY Comments: Last Taken: 01/30/18 Time: 9:30AM Metoprolol Tartrate (Lopressor) 50 MG TABLET 1 Tablet ORAL TWICE DAILY Comments: Last Taken: 01/30/18 Time: 9:30 AM Clonidine HCl (Clonidine HCl) 0.1 MG TABLET 1 Tablet ORAL TWICE DAILY Comments: Last Taken: 01/30/18 Time: 9:30 AM Aspirin (Ecotrin*) 325 MG TABLET.DR 1 Tablet ORAL TWICE DAILY Comments: DID NOT ADMINISTER IN HOSPITAL Ibuprofen (Ibuprofen) 600 MG TABLET 0.5 Tablet ORAL as needed for PAIN/INFLAMMATION Instructions: with food Comments: DID NOT ADMINISTER Start taking the following new medications: Enoxaparin Sodium (Lovenox) 40 MG/0.4 ML SYRINGE 0.4 [place] DAILY Qty = 26 No Refills Instructions: . Comments: Last Taken: 01/30/18 Time: 9:30AM Copies To: John HUGHES,Brayden Quintana
[2018-01-30] MEDS ORDERED: LOVENOX40 MG/0.1 SC ×2 (08:33→11:11)
[2018-01-30 09:18] LABS: ABSOLUTE BASOPHIL COUNT 0 /CUMM (0.0-0.2); ABSOLUTE EOSINOPHIL COUNT 0.2 /CUMM (0.0-0.7); ABSOLUTE GRANULOCYTE CT 4.6 /CUMM (1.4-6.5); ABSOLUTE LYMPH COUNT 1.5 /CUMM (1.2-3.4); ABSOLUTE MONOCYTE COUNT 0.6 /CUMM (0.10-0.60); BASOPHIL % 0.2 % (0.0-2.0); EOSINOPHIL % 2.2 % (0-5); GRANULOCYTE % 66.8 % (42.2-75.2); HEMATOCRIT 35.5 % (37-47); MEAN CORPUSCULAR HGB 31.6 PG (27.0-31.0); MEAN CORPUSCULAR HGB CONC 34.1 G/DL (33.0-37.0); MEAN CORPUSCULAR VOLUME 92.6 FL (81.0-99.0); MEAN PLATELET VOLUME 6.9 FL (7.4-10.4); PLATELET COUNT 273 /CUMM (130-400); RBC DISTRIBUTION WIDTH 13.2 % (11.5-14.5); RED BLOOD CELL CT 3.83 /CUMM (4.20-5.40); WHITE BLOOD CELL COUNT 6.8 /CUMM (4.8-10.8)
[2018-01-30 09:27] VITALS: BP 126/60
== END 2018-01-30 12:30 | disposition home health service (06) | DRG 482 ==
LOC: ERH 16:29 → ERHI 19:51 → 2NA 19:51 → ENRESERV 20:12 → ENTRNSPT 20:58 → 2NA 21:28 → CMPTRNSPT 21:31 → ENTRNSPT 01-28 12:46 → EDTRNSPTSTS 01-28 12:53 → EDTRNSPT 01-28 12:53 → CMPTRNSPT 01-28 13:12 → 2NA 01-30 07:32 → ENPENDDIS 01-30 12:04 → 2NA 01-30 12:30
PROVIDERS: Internal Medicine; Physician Assistant; Physician Assistant Surgical
PROC: 3E0T3BZ Introduction of Anesthetic Agent into Peripheral Nerves and Plexi, Percutaneous Approach (ICD-10-PCS; principal; 2018-01-28)
PROC: 0QH634Z Insertion of Internal Fixation Device into Right Upper Femur, Percutaneous Approach (ICD-10-PCS; principal; 2018-01-28)
DX: S72.001A Fracture of unspecified part of neck of right femur, initial encounter for closed fracture (principal); I10 Essential (primary) hypertension; Z88.0 Allergy status to penicillin; Z88.8 Allergy status to other drugs, medicaments and biological substances; W01.0XXA Fall on same level from slipping, tripping and stumbling without subsequent striking against object, initial encounter; Y93.89 Activity, other specified; Y92.512 Supermarket, store or market as the place of occurrence of the external cause
CPT/HCPCS: 2NAP; 36592; 71046; 73502-RT; 76000; 82436; 93005; 93010; 97110-GO; 97116-GO; 97161-GP; C1713; J0131; J0690; J1644; J1650; J3490; J7042; Q2036